=== PATIENT | female | born 1975 | race Caucasian/White ===

== ENCOUNTER → 2016-09-18 | Outpatient (CLI) | payer OTHER | LOC: CIMAGING 08:35 | DX: Z12.31 Encounter for screening mammogram for malignant neoplasm of breast (principal) | CPT/HCPCS: G0202 ==

== ENCOUNTER → 2016-10-03 | Day surgery (SDC) | payer OTHER ==
--- NOTE | 2016-10-02 15:50 | POSTOPPROG ---
Post Op Note Date of Operation: 10/02/16 Surgeon: Sanchez Alatorre Anesthesia: GET(General Endotracheal) Pre-op Diagnosis: Retained hardware R foot Post-op Diagnosis: Same Procedure: HWR R foot Inf/Abcess present in the surg proc area at time of surgery?: No EBL: Minimal
--- NOTE | 2016-10-02 16:09 | GHP ---
[f rep st] PREOP HISTORY AND PHYSICAL DATE OF ADMISSION: 10/03/2016 CHIEF COMPLAINT: Right foot pain. HISTORY OF PRESENT ILLNESS: Patient is a 41-year-old who had previously undergone a comprehensive c orrection for a posterior tibial tendon dysfunction. She had clinical and radiographic evidence of healed osteotomies and was having pain over her hardware. PAST MEDICAL HISTORY: Positive for hypertension, increased cholesterol, anxiety disorder and migrai quyen. MEDICATIONS: Medicines include alprazolam, atorvastatin, citalopram, hyoscyamine, isometheptene-dic hloralphenazone and . ALLERGIES: She is allergic to amoxicillin which produces hives. SOCIAL HISTORY: Negative for tobacco use. PHYSICAL EXAM: She is alert and oriented x3, in no acute distress. Head is normocephalic. CHEST: Clear to auscultation. HEART: Regular rate and rhythm. ABDOMEN: Soft, nontender, nondistended. GENITAL, RECTAL AND BREAST: Deferred. EXTREMITIES: Reveals healed incision scars on her right fo ot. She has focal tenderness over her distal calcaneal and calcaneal tuberosity hardware. ASSESSMENT: Symptomatic retained hardware, right foot. PLAN: The patient is scheduled to undergo hardware removal. /[id number]/MODL
[~2016-10-03] MED LIST: ACETAMINOPHEN 500 MG TAB PO PRN; ALBUTEROL 3 ML DEYVIAL IH PRN; BUPIVACAINE 0.5% 30 ML SDV ONE; CLINDAMYCIN 900 MG/DEXTROSE 50 ML IV ONE; HYDROCODONE/APAP 5/325 TAB PO PRN; HYDROmorphONE/DILAUDID 1 MG/ML SYR IVP PRN; HYDROmorphONE/DILAUDID 1 MG/ML SYR ONE; LABETALOL HCL 50 MG/10 ML SYR IVP PRN; LR 1,000 ML IV ONE; MIDAZOLAM 2 MG/2 ML VIAL IVP ONE; NALOXONE HCL 0.4 MG/ML INJ IVP PRN; ONDANSETRON 4 MG/2 ML VIAL IVP PRN; OXYCODONE/APAP 5/325 TAB ONE; OXYCODONE/APAP 5/325 TAB PO PRN; PROMETHAZINE HCL 25 MG/ML INJ IVP PRN; PROPOFOL 200 MG/20 ML VIAL ONE; fentaNYL 100 MCG/2 ML INJ IVP PRN; fentaNYL 100 MCG/2 ML INJ ONE
--- NOTE | 2016-10-03 08:42 | PDANEPAE ---
ANE History of Present Illness painful hardware right foot ANE Past Medical History - Cardiovascular History Hx Hypertension: Yes Hx Arrhythmias: No Hx Chest Pain: No Hx Coronary Artery / Peripheral Vascular Disease: No Hx CHF / Valvular Disease: No Hx Palpitations: No - Pulmonary History Hx COPD: No Hx Asthma/Reactive Airway Disease: No Hx Recent Upper Respiratory Infection: No Hx Oxygen in Use at Home: No - Neurologic History Hx Cerebrovascular Accident: No Hx Seizures: No Hx Dementia: No - Endocrine History Hx Diabetes: No - Renal History Hx Renal Disorders: No - Liver History Hx Hepatic Disorders: No - Neurological & Psychiatric Hx Hx Neurological and Psychiatric Disorders: Yes - Cancer History Hx Cancer: No - Congenital Disorder History Hx Congenital Disorders: No - GI History Hx Gastrointestinal Disorders: Yes - Chronic Pain History Chronic Pain: Yes (right ankle pain) ANE Review of Systems - Exercise capacity METS (RN): 4 METS ANE Patient History - Allergies Allergies/Adverse Reactions: amoxicillin Allergy (Intermediate, Verified 09/14/16 19:07) Hives - Home Medications Home medications: home medication list seen and reviewed Home Medications: Atorvastatin Calcium [Lipitor 10 mg (*)] #0 11/22/13 [Last Taken 03/18/16] ALPRAZolam [Xanax 0.5 MG (*)] #0 02/28/16 [Last Taken 03/21/16 11:00] Citalopram [CeleXA] 03/21/16 [Last Taken 03/21/16] MIDRIN CAPSULE 09/14/16 [Last Taken Unknown] - NPO status NPO Since - Liquids (Date): 10/03/16 NPO Since - Liquids (Time): 06:30 NPO Since - Solids (Date): 10/02/16 NPO Since - Solids (Time): 20:30 - Anes Hx Anes Hx: no prior problems - Smoking Hx Smoking Status: Former smoker - Alcohol Use Alcohol Use: Rarely - Family Anes Hx Family Hx Anesthesia Complications: NKDA ANE Labs/Vital Signs - Vital Signs Height: 180.34 cm Weight: 170.097 kg ANE Physical Exam - Airway Neck exam: FROM Mallampati Score: Class 2 Mouth exam: normal dental/mouth exam - Pulmonary Pulmonary: no respiratory distress - Cardiovascular Cardiovascular: regular rate and rhythym - ASA Status ASA Status: III ANE Anesthesia Plan Anesthesia Plan: general endotracheal anesthesia
[2016-10-03 09:05] VITALS: PULSE 79
--- NOTE | 2016-10-03 10:37 | POSTANESTH ---
Post Anesthetic Evaluation Cardiovascular Status: Normal, Stable Respiratory Status: Normal, Stable Level of Consciousness/Mental Status: Can Participate in Eval Pain Control: Adequate, Prn Tx Ordered Nausea/Vomiting Control: Adequate, Prn Tx Ordered Complications Possibly Related to Anesthesia: None Noted
[2016-10-03 10:43] VITALS: TEMP 97.7
[2016-10-03 11:12] VITALS: RESP 20
[2016-10-03 11:55] VITALS: BP 116/62; O2SAT 95
--- NOTE | 2016-10-03 15:57 | GOP ---
[f rep st] OPERATIVE REPORT DATE OF OPERATION: 10/03/2016 SURGEON: Sanchez Alatorre MD ANESTHESIA: General. PREOPERATIVE DIAGNOSIS: 1. Symptomatic retained hardware, right calcaneal tuberosity. 2. Symptomatic retained hardware, right distal calcaneus. POSTOPERATIVE DIAGNOSIS: 1. Symptomatic retained hardware, right calcaneal tuberosity. 2. Symptomatic retained hardware, right distal calcaneus. 3. Calcaneal exostosis. PROCEDURE PERFORMED: 1. Hardware removal, right calcaneal tuberosity. 2. Hardware removal, right distal calcaneus. 3. Right calcaneal exostectomy. 4. Intraoperative use of fluoroscopy. FINDINGS: ESTIMATED BLOOD LOSS: Minimal. 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 Patient had clinical and radiographic evidence of healed osteotomies, was having pain felt to be due to her retained hardware. Based on her persistence of s ymptoms, she is interested in pursuing operative treatment. From an operative standpoint, hardware removal was recommended. The patient acknowledged she understood the potential risks, including but not limited to, bleeding, infection, neurovascular damage, loss of limb or limb function, inability to remove hardware, pain or functional limitations despite hardware removal, and anesthetic risks. She acknowledged she understood the potential risks, planned procedure, and postoperative plan well and had all questions answered prior to surgery. She gave consent for the operative procedure. DESCRIPTION OF PROCEDURE: Patient brought in the operating room after IV antibiotics were administe red. She was placed in a supine position where general anesthetic was administered. Tourniquet was placed on her right calf. The patient was transferred to a left lateral decubitus position with be anbag support, axillary roll, padding all bony prominences. The right lower leg was prepped and dianne ped in standard sterile fashion. After Alpesh wrap exsanguination, tourniquet was inflated to 250. Attention was initially directed towards removal of the tuberosity screws. Under fluoroscopic ayan nce, the location of the screw heads was identified. Stab incisions were made through the skin down to the screw heads. The screw heads were identified utilizing fluoroscopic assistance and removed without difficulty. The stab incisions were closed with 3-0 nylon suture. Attention was then directed toward the distal calcaneus. A portion of the distal incision was utili zed. Skin and subcutaneous tissue were sharply incised. Dissection was carried dorsal to the peron eal tendons. The extensor digitorum brevis was elevated. Under fluoroscopic guidance, the dorsal s crew head was identified, and a portion of the screw was removed. A portion of screw was embedded i n the bone, was left in place. The plantar screw was similar identified utilizing fluoroscopic guid ance and removed without difficulty. Bony prominence along the lateral wall of the distal calcaneus from where the bone graft had incorporated was removed with a rongeur. The subcutaneous tissue was closed with 3-0 Vicryl suture in interrupted fashion. Skin was closed with 3-0 nylon interrupted v ertical mattress sutures. 0.5% Marcaine without epinephrine was injected in the wound sites. The w ounds were dressed with sterile Adaptic, 4 x 4, and Kerlix. Patient tolerated the procedure well an d was taken to the recovery room, extubated, in stable condition postoperatively. All sponge, needl e, and instrument counts were reported as being correct. DRAINS: None. COMPLICATIONS: None. PLAN: The patient will be discharged home weightbearing as tolerated. /[id number]/MODL
== END | disposition home or self-care (01) ==
LOC: FSGY 08:17
PROVIDERS: ATTEND Orthopaedic Surgery Foot and Ankle Surgery
PROC: 0QPL04Z Removal of Internal Fixation Device from Right Tarsal, Open Approach (ICD-10-PCS; principal; 2016-10-03 10:00)
DX: T84.84XA Pain due to internal orthopedic prosthetic devices, implants and grafts, initial encounter (principal)
CPT/HCPCS: J1170; J2250; J2704; J3010

== ENCOUNTER → 2017-09-19 | Outpatient (CLI) | payer OTHER | LOC: FIMAGING 09:24 | PROVIDERS: ATTEND Family Medicine | DX: Z12.31 Encounter for screening mammogram for malignant neoplasm of breast (principal) ==

== ENCOUNTER 2018-10-01 13:09 | Day surgery (SDC) | payer OTHER | END 2018-10-01 17:08 | disposition home or self-care (01) | LOC: FSGY 13:09 ==